=== PATIENT | male | born 1980 | race African-American/Black ===

== ENCOUNTER 2017-05-18 11:35 | Emergency (ER) | payer OTHER, SELFPAY ==
[2017-05-18 11:38] VITALS: BP 120/75; PULSE 72; RESP 22; TEMP 36.7; O2SAT 98; BMI 22.7
--- NOTE | 2017-05-18 12:00 | RAD_ITS ---
STUDY: X-RAY CHEST REASON FOR EXAM: Male, 37 years old. One-week history of cough and chest congestion. TECHNIQUE: PA and lateral views of the chest. COMPARISON: Comparison is made with prior study dated August 12, 2016. FINDINGS: Hyperinflation. The lungs are clear. There is no demonstrated pleural abnormality. Normal size heart. Normal mediastinum and kathryn. Normal visualized pulmonary arteries. Normal visualized aortic arch and descending thoracic aorta. Normal visualized thoracic spine. Normal visualized ribs, clavicles, and shoulders. There is no demonstrated abnormality of the visualized soft tissue structures of the upper abdomen. RAD/Chest PA and Lateral IMPRESSION: Hyperinflation. The lungs are clear. Electronically Signed: Michael Olvera MD at 12:41 EST Tel [phone], Service support ,
--- NOTE | 2017-05-18 12:48 | ED.DCSUM_ITS ---
- ER Visit Summary Date of Service: 05/18/17 Chief Complaint: [Fever and cough] History of Present Illness: The patient is a 37 M [presents to the emergency department with complaint of fever and cough for a week. Patient has had some mild nausea. Patient describes headache and body aches. Patient has had a runny nose. Patient has children at home that have been sick with the same and he thinks they were diagnosed with the flu.] She had fever up to 102 last night. Physical Examination: [HEENT-PERRLA, EOMI. Cranial nerves II through XII grossly intact. TMs clear. Mucous membranes moist. No adenopathy. She has some clear rhinorrhea noted. Cardiovascular-regular rate and rhythm without murmur or ectopy Lungs-clear to auscultation, chest wall stable without crepitus or subcu emphysema Abdomen-normoactive bowel sounds, soft, nontender, no rebound or rigidity, no peritoneal signs. Extremities-intact ?4, normal range of motion, normal pulses, atraumatic] Test Results: [Chest x-ray obtained was normal.] Emergency Department Course and Treatment: [None] Treatment Plan: [Patient will be written for [employer] and advised not to work until fever free for 24 hours.] Disposition: [Discharged to home in stable condition. Patient advised to return if increased difficulty breathing or condition should worsen in any way.] Impression: [Viral upper respiratory infection-suspect influenza] This note was generated with [employer] dictation software. It may contain incorrect words, spelling, and punctuation that were not noted in review of the chart prior to signing ED Disposition - Plan for ED Patient: Chief Complaint: General Illness Referrals: Care Physician,No Primary [Primary Care Provider] -
--- NOTE | 2017-05-18 12:48 | ED.DEP ---
ED Disposition - Plan for ED Patient: Chief Complaint: General Illness Instructions: ED Flu Prescriptions: Benzonatate [Tessalon Perle] 200 mg PO TID PRN PRN #20 cap PRN Reason: Cough Referrals: Care Physician,No Primary [Primary Care Provider] - Amira Tyler [[facility]] - 5-7 Days
[2017-05-18 13:02] VITALS: BP 127/79; PULSE 62; RESP 16; O2SAT 97
== END 2017-05-18 13:03 | disposition home or self-care (01) ==
PROVIDERS: Emergency Provider Emergency Medicine
DX: J06.9 Acute upper respiratory infection, unspecified (principal); Z72.0 Tobacco use
CPT/HCPCS: 71046; 99282

== ENCOUNTER 2017-11-05 20:16 | Emergency (ER) | payer SELFPAY ==
[2017-11-05 20:17] VITALS: BP 138/83; PULSE 100; RESP 16; TEMP 37.7; O2SAT 96; BMI 22.8
--- NOTE | 2017-11-05 20:56 | ED.VISSUMM ---
- ER Visit Summary Date of Service: 11/05/17 Chief Complaint: Right hand injury History of Present Illness: The patient is a 37 M with right hand pain and swelling after punching a door. Patient does not believe it is broken. He is right-hand dominant. Denies prior fracture to that hand. Physical Examination: Vital signs unremarkable. Patient's lying in bed no acute distress. Right upper extremity examination of the does reveal edema with minimal tenderness of the right fourth and fifth metacarpal phalangeal joints. There is full range of motion. Normal cap refill is noted. There is no tenderness at the wrist, elbow, or shoulder. Test Results: Right hand x-rays reveal no acute fracture. Emergency Department Course and Treatment: Levar wrap is applied to the hand. He declined anything for pain. Treatment Plan: [] Disposition: Discharge Impression: Right hand contusion This note was generated with [employer] dictation software. It may contain incorrect words, spelling, and punctuation that were not noted in review of the chart prior to signing ED Disposition - Plan for ED Patient: Disposition: Home or Assisted Living Chief Complaint: Upper Extremity Injury Instructions: ED Contusion Hand Referrals: Moses Hernández DO [STAFF PHYSICIAN] - As Needed
[2017-11-05 21:01] VITALS: BP 138/83; PULSE 100; RESP 15; O2SAT 96
== END 2017-11-05 21:02 | disposition home or self-care (01) ==
PROVIDERS: Emergency Provider Emergency Medicine
DX: S60.221A Contusion of right hand, initial encounter (principal); W22.09XA Striking against other stationary object, initial encounter; Y93.9 Activity, unspecified; Y92.89 Other specified places as the place of occurrence of the external cause; Y99.9 Unspecified external cause status
CPT/HCPCS: 73130; 99282

== ENCOUNTER 2018-02-25 18:30 | Emergency (ER) | payer SELFPAY ==
[2018-02-25 18:31] VITALS: BP 157/105; PULSE 88; RESP 14; TEMP 36.8; O2SAT 98; BMI 22.1
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
[2018-02-25 19:58] VITALS: BP 135/72; PULSE 65; RESP 17; O2SAT 99
[2018-02-25] MEDS: Naproxen 500 MG Tablet PO (20:03)
--- OUTSIDE RECORDS SUMMARY | 2018-04-21 00:48 | XMS RPT_ITS ---
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 37 From: Justine Worthy MD PCP: Care Physician, No Primary Status: [facility] ER ED Disposition - Plan for ED Patient: Disposition: Home or Assisted Living Chief Complaint: Upper Extremity Injury Instructions: ED Contusion Hand Referrals: Moses Hernández, [STAFF PHYSICIAN] - As Needed What to do if you have Problems For any increased pain, shortness of breath, bleeding, nausea or vomiting, chest pain, or any unexpected problems, contact your Primary Care Provider. Call [facility] ([phone]) or report to the closest Emergency Room. Call 911 if necessary. 11/05/172056 <Electronically signed by Justine Worthy MD> Date Justine Worthy MD Cosigner Signature (If Indicated): Date CC: No Primary Care Physician HAND MIN 3 VIEWS Observed: 11/05/2017 Status: F Source: [place] 8:39 PM [facility] [place] [facility] Imaging Services [address] [place] [id number] Hand Min 3 Views MR#: [id number] Acct: [id number] Name: NIKOLAS BARKER Rep #: [id number] : 1980 37 From: Phong Benavides MD PCP: Baljit Physician, No Primary Status: [facility] ER Study: Hand Min 3 Views Date of Exam: 11/05/17 Exam# [id number] Ordering Dr: Justine Worthy MD STUDY: X-RAY - RIGHT HAND REASON FOR EXAM: Male, 37 years old. Trauma TECHNIQUE: 3 view(s) of the hand. COMPARISON: October 23, 2016 FINDINGS: Mild soft tissue swelling. No radiopaque foreign body. Remote avulsion fracture at the fifth PIP joint seen on the lateral radiograph. There is deformity to the fifth metacarpal likely prior trauma. No dislocation identified. RAD/Hand Min 3 Views IMPRESSION: Soft tissue swelling. Remote avulsion fracture at the fifth PIP joint. No acute fracture identified. Electronically Signed: Phong Britoford, at 21:24 EDT Tel , Service support , CC: No Primary Care Physician; Justine Worthy MD Health Information Technologist: Signed ED NOTE Observed: 10/31/2017 Status: COMPLETED Source: [place] 1:14 AM [facility] OTHER [place] REPOSITORY HNO ID: [id number] Author: Vivian BarrettRn) COREY Hall Service: (none) Author Type: Registered Nurse Type: ED Notes Filed: 10/31/2017 1:14 AM Note Text: Pt discharge and follow up care reviewed with pt. Pt verb understanding. Pt ambulating with steady gait upon discharge from ED. ED PROV NOTE Observed: 10/31/2017 Status: COMPLETED Source: [place] 1:01 AM [facility] OTHER [place] REPOSITORY HNO ID: [id number] Author: PARAG Luo Pa-C Service: Emergency Medicine Author Type: Physician Manager Of Change Type: ED Provider Notes Filed: 10/31/2017 1:03 AM Note Text: ED Provider Note Patient Name: Nikolas Barker SERVICE DATE: 10/30/17 History Patient presents with: Pain (Shoulder Pain) This is a pleasant 37-year-old male presents to the emergency department with right shoulder pain. Patient states the right shoulder pain has been ongoing for 3 weeks. Patient states that the pain has become worse today. Patient states that he has a remote injury of his right shoulder when he over used to his shoulder throwing a baseball. Patient states that he is played basketball 3 weeks ago which showed (to her again. Patient states that his shoulder hurts on the anterior and lateral aspect of the muscle. Patient denies trauma. Patient denies nausea vomiting fever chills. Patient denies decreased range of motion paresthesia. Patient denies crepitus. Patient denies subluxation. Patient denies OTC medication for prior evaluations. PAST MEDICAL HISTORY Diagnosis Date - Psychiatric disorder anxiety PAST SURGICAL HISTORY Procedure Laterality Date - HERNIA REPAIR HX right inguinal No family history on file. Social History Social History Main Topics - Smoking status: Current Every Day Smoker Packs/day: 0.50 Types: Cigarettes - Smokeless tobacco: Never Used - Alcohol use 1.0 oz/week 2 Cans of beer per week Comment: social - Drug use: No Comment: quit last week - Sexual activity: Yes Partners: Female ALLERGIES No Known Allergies Review of Systems Constitutional: Negative for appetite change, chills, diaphoresis, fatigue and fever. HENT: Negative for congestion, dental problem, rhinorrhea and sore throat. Eyes: Negative for pain and visual disturbance. Respiratory: Negative for cough, chest tightness, shortness of breath and wheezing. Cardiovascular: Negative for chest pain and leg swelling. Gastrointestinal: Negative for abdominal distention, abdominal pain, diarrhea, nausea and vomiting. Endocrine: Negative for polydipsia and polyuria. Genitourinary: Negative for difficulty urinating, dysuria, flank pain and hematuria. Musculoskeletal: Positive for arthralgias. Negative for myalgias and neck stiffness. Neurological: Negative for dizziness, seizures, light-headedness, numbness and headaches. Hematological: Negative for adenopathy. Does not bruise/bleed easily. Psychiatric/Behavioral: Negative for agitation. All other systems reviewed and are negative. Physical Exam BP 148/75 Pulse 58 Temp (Src) 98.2 (Oral) Resp 18 Ht 5' 8 (1.73m) Wt 150 lb (68.0kg) SpO2 98% BMI 22.81 kg/(m2). Physical Exam Constitutional: He is oriented to person, place, and time. He appears well-developed. No distress. HENT: Head: Normocephalic and atraumatic. Mouth/Throat: No oropharyngeal exudate. Eyes: Conjunctivae and EOM are normal. Pupils are equal, round, and reactive to light. No scleral icterus. Neck: Normal range of motion. No JVD present. No thyromegaly present. Cardiovascular: Normal rate, regular rhythm, normal heart sounds and intact distal pulses. Pulmonary/Chest: Effort normal and breath sounds normal. He has no wheezes. He has no rales. Abdominal: Soft. He exhibits no distension. There is no tenderness. Musculoskeletal: Normal range of motion. He exhibits no edema or tenderness. Neurological: He is alert and oriented to person, place, and time. Skin: Skin is warm. Capillary refill takes less than 2 seconds. He is not diaphoretic. No erythema. Psychiatric: He has a normal mood and affect. His behavior is normal. Judgment and thought content normal. Nursing note and vitals reviewed. Diagnostic Testing ED Labs Ordered and Reviewed - No data to display Procedures ED Course / Clinical Impression Clinical Impressions as of Oct 31 100 Strain of right shoulder, initial encounter MDM / Disposition / Plan Vital signs were reviewed. Triage records were reviewed. Medical records were reviewed. Nursing notes were reviewed and incorporated. Medical Decision Makiny M presents to ED c/o Shoulder strain. Pt is afebrile and HD stable. Pt is non-toxic appearing, AANDO in no distress. Patient is generously intact. Patient demonstrates full range of motion. Patient's pain was improved with mobility and stretching exercises. Pain is reproducible with muscle deep palpation. Patient educated on muscular strain. Patient educated on orthopedic follow-up. Patient educated on x-ray images. Patient provided Norflex. Pt educated on pharm non-pharm tx. Pt educated on worsening and progressing symptoms and encouraged to return to ED if they should occur. Patient expressed understanding and is amenable to medical course. All questions were answered and there is no barriers in communication. The patient was DISCHARGED: Counseled patient regarding suspected diagnosis AND need for follow-up. Discharged home with verbal and written instructions. They were instructed to return as needed for persistent or worsening symptoms or any new concerns. Condition at time of disposition: stable New Prescriptions CYCLOBENZAPRINE (FLEXERIL) 10 MG TABLET Take 1 tablet by mouth every 8 hours as needed for Muscle Spasm (or Pain). IBUPROFEN (MOTRIN) 600 MG TABLET Take 1 tablet by mouth every 6 hours as needed for Pain. SIGNATURE: ORLANDO Luo) PARAG Singer 10/31/17 0103 XR SHLDR >/=3V Observed: 10/31/2017 Status: F Source: [place] AP/TEMO AP/OT RT 12:36 AM CLINIC OTHER CAMPUS REPOSITORY * * *Final Report* * * DATE OF EXAM: Oct 31 2017 12:36AM EUX 5253 - XR SHLDR >/=3V AP/TEMO AP/OTHR RT / PROCEDURE REASON: Arthritis, shoulder * * * * Physician Interpretation * * * * RESULT: RIGHT SHOULDER X-RAY SERIES HISTORY: Arthritis, shoulder TECHNIQUE: AP, Grashey, lateral scapular Y-view COMPARISON: None available. RESULT: No fracture, dislocation or destructive changes. Joint spaces and articular surfaces are preserved. IMPRESSION: Normal right shoulder. Transcribed Using Voice Recognition Transcribe Date/Time: Oct 31 2017 12:50A Dictated by: KEIRY KILGORE MD This examination was interpreted and the report reviewed and electronically signed by: KEIRY KILGORE MD on Oct 31 2017 12:51AM EST [id number] ED NOTE Observed: 10/31/2017 Status: COMPLETED Source: [place] 12:35 AM [facility] HNO ID: [id number] Author: Vivian Hall RN Service: (none) Author Type: Registered Nurse Type: ED Notes Filed: 10/31/2017 12:35 AM Note Text: Patient returned to the Emergency Department. ED NOTE Observed: 10/31/2017 Status: COMPLETED Source: [place] 12:15 AM [facility] HNO ID: [id number] Author: Vivian Hall RN Service: (none) Author Type: Registered Nurse Type: ED Notes Filed: 10/31/2017 1:15 AM Note Text: Patient transported to x-ray with Nurse. ED NOTE Observed: 10/30/2017 Status: COMPLETED Source: [place] 11:36 PM [facility] HNO ID: [id number] Author: Vivian Hall RN Service: (none) Author Type: Registered Nurse Type: ED Notes Filed: 10/31/2017 12:16 AM Note Text: ED NOTE Observed: 10/30/2017 Status: COMPLETED Source: [place] 9:47 PM [facility] HNO ID: [id number] Author: Daniela Payne RN Service: (none) Author Type: Registered Nurse Type: ED Notes Filed: 10/30/2017 9:47 PM Note Text: Pt in with R shoulder pain x three weeks with no known injury. Plan of care -Monitor Patient's Vital Signs -Monitor pain -Maintain patient safety and privacy -Provide comfort measures as needed -Call light in place -Siderails up, bed in locked and low position. DISCHARGE INSTRUCTION Observed: 05/18/2017 Status: F Source: [place] 12:51 PM [facility] Medical Records Department [address] [place] [address] Discharge Instruction 05/18/17 1248 MR#: [id number] Acct: [id number] Name: NIKOLAS BARKER Rep #: [id number] : 1980 37 From: Fili Alston DO PCP: Care Physician, No Primary Status: REG ER ED Disposition - Plan for ED Patient: Chief Complaint: General Illness Instructions: ED Flu Prescriptions: Benzonatate [Tessalon Perle] 200 mg PO TID PRN PRN #20 cap PRN Reason: Cough Referrals: Care Physician,No Primary [Primary Care Provider] - Amira Tyler [[facility]] - 5-7 Days What to do if you have Problems For any increased pain, shortness of breath, bleeding, nausea or vomiting, chest pain, or any unexpected problems, contact your Primary Care Provider. Call [facility] ([phone]) or report to the closest Emergency Room. Call 911 if necessary. 05/18/17 1251 <Electronically signed by Fili Alston DO> Date Fili Alston DO Cosigner Signature (If Indicated): Date CC: No Primary Care Physician EMERGENCY DEPARTMENT Observed: 05/18/2017 Status: F Source: [place] SUMMARY 12:48 PM [facility] [facility] Medical Records Department [address] [place] [address] Emergency Department Summary 05/18/17 1247 MR#: [id number] Acct: [id number] Name: NIKOLAS BARKER Rep #: [id number] : 1980 37 From: Fili Alston DO PCP: Care Physician, No Primary Status: REG ER - ER Visit Summary Date of Service: 05/18/17 Chief Complaint: [Fever and cough] History of Present Illness: The patient is a 37 M [presents to the emergency department with complaint of fever and cough for a week. Patient has had some mild nausea. Patient describes headache and body aches. Patient has had a runny nose. Patient has children at home that have been sick with the same and he thinks they were diagnosed with the flu.] She had fever up to 102 last night. Physical Examination: [HEENT-PERRLA, EOMI. Cranial nerves II through XII grossly intact. TMs clear. Mucous membranes moist. No adenopathy. She has some clear rhinorrhea noted. Cardiovascular-regular rate and rhythm without murmur or ectopy Lungs-clear to auscultation, chest wall stable without crepitus or subcu emphysema Abdomen-normoactive bowel sounds, soft, nontender, no rebound or rigidity, no peritoneal signs. Extremities-intact 4, normal range of motion, normal pulses, atraumatic] Test Results: [Chest x-ray obtained was normal.] Emergency Department Course and Treatment: [None] Treatment Plan: [Patient will be written for [employer] and advised not to work until fever free for 24 hours.] Disposition: [Discharged to home in stable condition. Patient advised to return if increased difficulty breathing or condition should worsen in any way.] Impression: [Viral upper respiratory infection-suspect influenza] This note was generated with KILTR dictation software. It may contain incorrect words, spelling, and punctuation that were not noted in review of the chart prior to signing ED Disposition - Plan for ED Patient: Chief Complaint: General Illness Referrals: Care Physician,No Primary [Primary Care Provider] - What to do if you have Problems For any increased pain, shortness of breath, bleeding, nausea or vomiting, chest pain, or any unexpected problems, contact your Primary Care Provider. Call [facility] ([phone]) or report to the closest Emergency Room. Call 911 if necessary. 05/18/17 8731 <Electronically signed by Fili Alston DO> Date Fili Alston DO Cosigner Signature (If Indicated): Date CC: No Primary Care Physician CHEST PA AND LATERAL Observed: 05/18/2017 Status: F Source: [place] 12:00 PM [facility] Imaging Services [address] [place] [address] Chest PA and Lateral MR#: [id number] Acct: [id number] Name: NIKOLAS BARKER Rep #: [id number] : 1980 M 37 From: Michael Olvera MD PCP: Care Physician, No Primary Status: REG ER Study: Chest PA and Lateral Date of Exam: 05/18/17 Exam# [id number] Ordering Dr: Fili Alston DO STUDY: X-RAY CHEST REASON FOR EXAM: Male, 37 years old. One-week history of cough and chest congestion. TECHNIQUE: PA and lateral views of the chest. COMPARISON: Comparison is made with prior study dated August 12, 2016. FINDINGS: Hyperinflation. The lungs are clear. There is no demonstrated pleural abnormality. Normal size heart. Normal mediastinum and kathryn. Normal visualized pulmonary arteries. Normal visualized aortic arch and descending thoracic aorta. Normal visualized thoracic spine. Normal visualized ribs, clavicles, and shoulders. There is no demonstrated abnormality of the visualized soft tissue structures of the upper abdomen. RAD/Chest PA and Lateral IMPRESSION: Hyperinflation. The lungs are clear. Electronically Signed: Michael Olvera MD at 12:41 EST Tel [phone], Service support , CC: No Primary Care Physician; Fili Alston DO Health Information Technologist: Signed ALLERGIES ALLERGIES DATE TYPE / CODE NAME / CODE REACTION SEVERITY SOURCE 02/25/2018 Drug No Known Unknown [facility] Allergy/416 Allergies/C20999 Hospital 192961(SNOM 0388(RXNORM) Repository ED CT) Drug NO KNOWN [facility] Class/14168 ALLERGIES Other [place] 1003(SNOMED Repository CT) ENCOUNTERS ENCOUNTERS ADMIT/DISCHARGE ACCOUNT NUMBER ADMITTING ENCOUNTER LOCATION SOURCE CLASS 02/25/2018/02/26/20 [id number] Emergency [address] ing:ED Repository 02/16/2018/02/17/20 [id number] Emergency [address] Repository 11/05/2017/11/06/19 [id number] Emergency [address] ing:ED Repository 10/30/2017/11/01/19 [id number] Emergency [address] Other [place] Repository 05/18/2017/05/18/19 [id number] Emergency [address] ing:ED Repository PAYERS PAYERS ENCOUNTER GUARANTOR PAYER SUBSCRIBER SOURCE 02/25/2018 NIKOLAS BARKER978 [facility] [address]Jjp: (216) Number: Effective Repository [phone] () Date:2018-02-25 11/05/2017 NIKOLAS BARKER978 Primary NOT GIVENUNK [place] Insurance:SELF PAY [facility] [id number]: (330) Number: Effective Repository [phone] () Date:2017-11-05 05/18/2017 NIKOLAS BARKER978 Primary NIKOLAS BARKERDOB: [place] Insurance[id number] [address]Ugr: (330) Number: Repository [phone] () [id number] Date:[id number] [address]GT: 05/18/2017 Secondary NOT GIVENUNK [place] Insurance[facility]LF [facility]Y [facility]: Effective Repository Date:2017-05-18
== END 2018-02-25 20:04 | disposition home or self-care (01) ==
PROVIDERS: Emergency Provider Emergency Medicine
DX: S20.211A Contusion of right front wall of thorax, initial encounter (principal); W51.XXXA Accidental striking against or bumped into by another person, initial encounter; Y93.9 Activity, unspecified; Y92.89 Other specified places as the place of occurrence of the external cause; Y99.8 Other external cause status; Z72.0 Tobacco use
CPT/HCPCS: 71101; 99282

== ENCOUNTER 2020-09-17 18:52 | Emergency (ER) | payer BC, SELFPAY ==
[2020-09-17 18:52] VITALS: BP 150/82; PULSE 88; RESP 15; TEMP 35.8; O2SAT 98; BMI 20.7
--- NOTE | 2020-09-17 19:20 | RAD_ITS ---
STUDY: X-RAY - RIGHT HAND REASON FOR EXAM: Male, 40 years old. Injury/Pain TECHNIQUE: 3 view(s) of the hand. COMPARISON: 07/06/2017 FINDINGS: Normal radiocarpal articulation. Normal distal radioulnar joint. Normal visualized carpal bones. Normal carpal articulations Normal carpometacarpal articulation of the thumb. Normal second through fifth carpometacarpal joints. Normal metacarpi. Normal metacarpophalangeal joint of the thumb. Normal interphalangeal joint of the thumb. Normal proximal and distal phalanges of the thumb. Normal metacarpophalangeal joints of the second through fifth fingers. Normal proximal and distal interphalangeal joints of the second through fifth fingers. Normal phalanges of the second through fifth fingers. The soft tissue structures are unremarkable. RAD/Hand Min 3 Views IMPRESSION: No acute osseous injury. Electronically Signed: Liliane Cabrera MD at 19:59 EDT Tel , Service support ,
--- NOTE | 2020-09-17 21:10 | EX.ED.UPPERE ---
HPI History of Present Illness HPI Narrative: Patient presents with right hand injury that occurred several days ago. Patient was seen at an outlying hospital and had sutures placed in his fingers. Patient states they did x-rays but that only concentrated on his fingers. Patient complains of pain over his fourth and fifth metacarpals. Patient admits to increased swelling in that area. Patient denies any paresthesias or weakness. Patient denies any other injuries. Chief Complaint: Upper Extremity Injury Informant: patient Onset/Context/Timing Onset: Days Context: Sudden Onset Timing: Continuous Quality of Pain: Throbbing Location: Right hand Worsened by: Palpation Relieved by: Ibuprofen Associated Symptoms Associated Symptoms: Negative for Parasthesia and Weakness PFSH PFSH no medical history Home Medications NK 09/17/20 [History Last Taken Unknown] Allergy/AdvReac Type Severity Reaction Status Date / Time No Known Allergies Allergy Verified 09/17/20 18:54 Surgical History H/O hernia repair Social History Smoking Status: Current every day smoker tobacco type: cigarettes ROS ROS ED Constitutional Constitutional ED: Denies chills or fever(s) Eyes Eyes: Denies blurry vision or change in vision ENT ENT ED: Denies rhinorrhea or sore throat Cardiovascular Cardiovascular: Denies chest pain or palpitations Respiratory/Chest Respiratory/Chest: Denies cough or dyspnea Gastrointestinal Gastrointestinal: Denies nausea or vomiting Genitourinary Genitourinary ED: Denies dysuria or hematuria Musculoskeletal Musculoskeletal: Denies back pain or neck pain Integumentary Denies abscess or rash Neurologic Neurologic: Denies headache(s) or weakness Allergic/Immunologic Allergic/Immunologic ED: Denies mouth swelling or urticaria EXAM Physical Exam Const Vital Signs: 09/17/20 18:52 Temperature 96.5 F L Temperature Source Temporal Pulse Rate 88 Respiratory Rate 15 Blood Pressure 150/82 H Blood Pressure Mean 104 Pulse Ox 98 Oxygen Delivery Method Room Air Positive well nourished and well developed General Appearance ED: well developed HEENT Reports moist mucous membranes Neck full ROM Extremity Extremity Narrative: There is tenderness and edema over the right fourth and fifth metacarpals. There is no obvious deformity. There are healing lacerations noted over the dorsal aspect of the right hand and middle finger. There is no erythema. There is no discharge or drainage. Range of motion was limited in all motions of the right hand secondary to pain. Sensation was intact to light touch in all digits. Capillary refill was less than 2 seconds in all digits. Neuro oriented x3, CN's II-XII intact bilaterally, moves all extremities, no focal motor deficits and no sensory deficits noted Sensorium / Orientation: alert Psych mental status grossly normal MDM MDM MDM Narrative Medical decision making narrative: X-rays of the right hand were obtained. There are 3 views. On my interpretation, there is no acute fracture. There is no dislocation. There is some mild soft tissue swelling. Radiologist also interpreted the x-rays and agrees. Patient was advised of his findings. Patient was given a Velcro wrist splint. Patient was instructed to continue ibuprofen as needed for pain. Patient was instructed use ice to the area. Patient was instructed to follow-up with his primary care physician in 5 to 7 days. Patient understood and was agreeable with the plan. All questions were answered. Radiography Diagnostic Testing: Radiology Impression Hand X-Ray 09/17/20 19:20 IMPRESSION: No acute osseous injury. Electronically Signed: Liliane Cabrera MD at 19:59 EDT Tel , Service support , Discharge Plan Triage Chief Complaint: Upper Extremity Injury ED Provider: Hank Paiz Dx/Rx/DC Orders Clinical Impression: Contusion of hand, right Instructions: ED Hand Contusion Prescriptions: No Action NK RF: 0 Primary Care Provider: Care Physician,No Primary Referrals: Teena Joyner [NON-STAFF] - 5-7 Days Care Physician,No Primary [Primary Care Provider] - Disposition Disposition: Home, Self Care
== END 2020-09-17 21:37 | disposition home or self-care (01) ==
PROVIDERS: Emergency Provider Emergency Medicine
DX: S60.221D Contusion of right hand, subsequent encounter (principal); X58.XXXD Exposure to other specified factors, subsequent encounter; F17.210 Nicotine dependence, cigarettes, uncomplicated
CPT/HCPCS: 73130; 99283

== ENCOUNTER 2021-01-07 19:34 | Emergency (ER) | payer SELFPAY ==
[2021-01-07 19:35] VITALS: BP 143/91; PULSE 72; RESP 18; TEMP 36.8; O2SAT 99; BMI 23.5
[2021-01-07] MEDS: Ondansetron 4 MG/2 ML Vial IV (20:45)
[2021-01-07 20:55] LABS: Absolute Lymphocyte Count 3.13 X10^3/uL (0.83-4.51); Absolute Neutrophil Count 4.8 X10^3/uL (2.0-7.7); Basophil# 0.02 X10^3/uL; Basophil% 0.2 % (0-1); Eosinophil# 0.07 X10^3/uL; Eosinophils% 0.8 % (0-5); Hematocrit 43.7 % (40-54); Hemoglobin 14.6 g/dL (13.0-16.5); Lymphocyte # 3.13 X10^3/ul (0.83-4.51); Lymphocyte % 35.7 % (19-41); Mean Corp Hgb Conc 33.4 g/dL (32-36); Mean Corpuscular Hgb 28.6 pg (27.0-32.0); Mean Corpuscular Volume 85.5 fL (80-94); Mean Platelet Vol. 9.1 fl (6.2-12.0); Monocyte# 0.69 X10^3/uL; Monocyte% 7.9 % (0-10); NRBC Flagged by Analyzer 0 % (0-5); Neutrophil # 4.83 X10^3/uL (2.7-7.7); Neutrophil % 55.2 % (47-70); Platelet Count 309 K/mm3 (150-450); RBC Distribution Width CV 13.8 % (11.6-14.6); RBC Distribution Width SD 43.1 fl (35.1-43.9); Red Blood Count 5.11 M/mm3 (4.6-6.2); White Blood Count 8.8 K/mm3 (4.4-11.0)
[2021-01-07 21:25] LABS: AST(SGOT) 58 U/L (15-37); Alanine Aminotransfer ALT/SGPT 36 U/L (16-61); Albumin, Serum 3.6 g/dL (3.2-5.0); Alkaline Phosphatase 63 U/L (45-117); Anion Gap 6 (5-15); BUN 17 mg/dL (7-18); BUN/Creat Ratio 19.1 RATIO (10-20); Bilirubin, Direct < 0.05 mg/dL (0.00-0.30); Chloride 104 mmol/L (98-107); Creatinine, Serum 0.89 mg/dL (0.70-1.30); EST Glomerular Filtration Rate 100 mL/min (>60); Est Glom Filt Rate - Afr Amer 121 mL/min (>60); Estimated Creatinine Clearance 105.67 ml/min; Globulin 4.3 g/dL (2.2-4.2); Glucose 85 mg/dL (74-106); Lipase 43 U/L (73-393); Potassium 5.4 mmol/L (3.5-5.1); Protein, Total 7.9 g/dL (6.4-8.2); Sodium Level 136 mmol/L (136-145)
[2021-01-07 23:05] VITALS: RESP 16
--- NOTE | 2021-01-07 23:16 | EDS_ITS ---
HPI History of Present Illness Chief Complaint: Abd Pain Informant: patient Onset/Context/Timing Onset: Today Current Severity: Mild Maximum Severity: Mild Narrative Narrative: Patient presents secondary to abdominal pain and vomiting. He states he went to work today and felt slightly nauseated. He thought he might of eaten something that did not settle well with him. While at work pain worsened and he vomited twice. He went to the company nurse who evaluated him and recommended he come in for evaluation. Patient denies diarrhea. No fever or chills. No co ugh or congestion. PFSH PFSH Medical History no medical history no medical history Home Medications ondansetron 4 mg PO Q8H PRN #10 tab 01/07/21 [Rx Last Taken Unknown] Allergy/AdvReac Type Severity Reaction Status Date / Time No Known Allergies Allergy Verified 09/17/20 18:54 Surgical History H/O hernia repair Social History Smoking Status: Current every day smoker tobacco type: cigarettes ROS ROS ED Constitutional Constitutional ED: Denies chills or fever(s) Eyes Eyes: Denies change in vision ENT ENT ED: Denies sore throat Cardiovascular Cardiovascular: Denies chest pain Respiratory/Chest Respiratory/Chest: Denies cough or dyspnea Gastrointestinal Gastrointestinal: Reports abdominal pain, nausea and vomiting; Denies diarrhea Genitourinary Genitourinary ED: Denies dysuria Musculoskeletal Musculoskeletal: Denies back pain Integumentary Denies rash Neurologic Neurologic: Denies headache(s) or weakness Allergic/Immunologic Allergic/Immunologic ED: Denies urticaria EXAM Physical Exam Const Vital Signs: 01/07/21 19:35 01/07/21 23:05 01/07/21 23:24 Temperature 98.3 F Temperature Source Temporal Pulse Rate 72 Respiratory Rate 18 16 16 Blood Pressure 143/91 H Blood Pressure Mean 108 Pulse Ox 99 Oxygen Delivery Method Room Air Positive well nourished and well developed General Appearance ED: well developed HEENT Reports normocephalic and head/scalp atraumatic Eyes PERRL and EOMs intact bilaterally Neck supple Chest Wall inspection of chest normal and palpation of chest normal Resp normal respiratory effort and clear to auscultation bilaterally Cardio regular rate and regular rhythm GI normal to inspection, nondistended, normoactive bowel sounds and non-tender Palpation: soft Extremity normal to inspection Neuro oriented x3 and no sensory deficits noted Sensorium / Orientation: alert Motor Exam: strength 5/5 throughout Psych mental status grossly normal Skin no rashes or lesions noted MDM MDM MDM Narrative Medical decision making narrative: Patient was given Zofran. Lab work obtained. Covid swab ordered. Lab Data Attestation: I reviewed the patient's lab results. Labs: Laboratory Results - last 24 hr 01/07/21 01/07/21 20:43 20:43 WBC 8.8 RBC 5.11 Hgb 14.6 Hct 43.7 MCV 85.5 MCH 28.6 MCHC 33.4 RDW Std Deviation 43.1 RDW Coeff of Estephania 13.8 Plt Count 309 MPV 9.1 Immature Gran % (Auto) 0.200 Neut % (Auto) 55.2 Lymph % (Auto) 35.7 [place] % (Auto) 7.9 Eos % (Auto) 0.8 Baso % (Auto) 0.2 Absolute Neuts (auto) 4.8 Absolute Lymphs (auto) 3.13 Nucleated RBC % 0 Sodium 136 Potassium 5.4 H Chloride 104 Carbon Dioxide 26.0 Anion Gap 6 BUN 17 Creatinine 0.89 Estim Creat Clear Calc 105.67 Est GFR (MDRD) Af Amer 121 Est GFR (MDRD) Non-Af 100 BUN/Creatinine Ratio 19.1 Glucose 85 Calcium 9.0 Total Bilirubin 0.50 Direct Bilirubin < 0.05 AST 58 H ALT 36 Alkaline Phosphatase 63 Total Protein 7.9 Albumin 3.6 Globulin 4.3 H Lipase 43 L Rapid Covid test negative. Treatment and Re-Evaluation Comments:: Repeat evaluation patient in no acute distress. He reports some improvement in his nausea. Lab work reviewed and unremarkable. Patient be discharged with a prescription for Zofran. Return instructions provided. He is given a note for off work today and may return tomorrow. Discharge Plan Triage Chief Complaint: Abd Pain ED Provider: Justine Worthy Dx/Rx/DC Orders Clinical Impression: Vomiting Instructions: ED Vomiting (Adult) Prescriptions: New ondansetron 4 mg tablet,disintegrating 4 mg PO Q8H PRN (Reason: nausea and vomiting) Qty: 10 RF: 0 Stand Alone Forms: ED Work / School Excuse Primary Care Provider: Care Physician,No Primary Referrals: Amira Tyler MD [STAFF PHYSICIAN] - As Needed Care Physician,No Primary [Primary Care Provider] - Disposition Disposition: Home, Self Care Discharge Date/Time: 01/07/21 23:25
[2021-01-07 23:24] VITALS: RESP 16
== END 2021-01-07 23:25 | disposition home or self-care (01) ==
PROVIDERS: Emergency Provider Emergency Medicine
DX: R11.2 Nausea with vomiting, unspecified (principal); R10.9 Unspecified abdominal pain; F17.210 Nicotine dependence, cigarettes, uncomplicated
CPT/HCPCS: 80048; 80076; 83690; 85025; 87426; 96374; 99283; A4216; J2405

== ENCOUNTER 2021-02-03 12:49 | Emergency (ER) | payer SELFPAY ==
[2021-02-03 12:49] VITALS: BP 160/95; PULSE 88; RESP 16; TEMP 36.1; O2SAT 99; BMI 23.6
[2021-02-03 13:02] VITALS: BP 142/88; PULSE 88; RESP 15; O2SAT 99
--- NOTE | 2021-02-03 13:16 | EX.ED.DYSGE1 ---
HPI History of Present Illness Chief Complaint: Abd Pain Detail of Chief Complaint: Vomiting and diarrhea x3 days Informant: patient Narrative Narrative: Patient presents to the emergency department complaint of not feeling well times last 3 days. Patient states that he woke up with a fever as well as vomiting and diarrhea. Patient did not go to work. Patient states the diarrhea is better but continues to have nausea and vomiting. He has decreased appetite. He vomited about 3 times yesterday and once today. He denies any abdominal pain currently. He denies cough. He denies body aches. He denies Covid exposures. Patient does not have any medical history. He denies sick contacts. PFSH PFSH Medical History no medical history Home Medications ondansetron 4 mg PO Q8H PRN PRN #10 tab 02/03/21 [Rx Last Taken Unknown] ondansetron [Zofran ODT] 4 mg PO Q8H PRN PRN 02/03/21 [History Last Taken Unknown] Allergy/AdvReac Type Severity Reaction Status Date / Time No Known Allergies Allergy Verified 02/03/21 12:50 Surgical History H/O hernia repair Social History Smoking Status: Current every day smoker tobacco type: cigarettes ROS ROS ED Constitutional Constitutional ED: Reports systems reviewed and no addt'l complaints, except as documented; Denies body ache(s), change in weight or chills Eyes Eyes: Denies acute decrease in peripheral vision, change in vision, double vision or loss of vision ENT ENT ED: Reports none; Denies ear pain, lip swelling, loss taste/smell, neck pain, otalgia or sore throat Cardiovascular Cardiovascular: Reports none; Denies abdominal pain, chest pain with activity, leg edema, lightheadedness, palpitations, rapid heart rate or syncope Respiratory/Chest Respiratory/Chest: Reports none; Denies change in mental status, dry cough, dyspnea, hemoptysis, shortness of breath at rest or shortness of breath with exertion Gastrointestinal Gastrointestinal: Reports none, diarrhea, nausea and vomiting; Denies abdominal pain, change in stool character, hematemesis, hematochezia, melena or rectal bleeding Genitourinary Genitourinary ED: Reports none; Denies abdominal discomfort, anuria, dysuria, genital pain or polyuria Musculoskeletal Musculoskeletal: Reports none; Denies arthralgias, back pain, difficulty walking, extremity pain, muscle weakness or myalgias Integumentary Reports none; Denies abscess or rash Neurologic Neurologic: Reports none and headache(s); Denies abnormal gait, confusion, focal weakness, frequent falls, loss of vision, numbness, paresthesias, radicular pain, vertigo or weakness Psychiatric Psychiatric: Reports systems reviewed and no addt'l complaints, except as documented and none; Denies behavioral changes, confusion, difficulty concentrating, hallucinations, suicidal ideation, tactile hallucinations or visual hallucinations Endocrine Endocrinology: Denies none, cold intolerance, excessive sweating, fatigue or heat intolerance Hematologic/Lymphatic Hematologic/Lymphatic: Reports none; Denies anemia, easy bleeding or easy bruising Allergic/Immunologic Allergic/Immunologic ED: Denies as per HPI, none, lip swelling, mouth swelling, throat swelling, tongue swelling or hives EXAM Physical Exam Const Vital Signs: 02/03/21 12:49 02/03/21 13:02 Temperature 97 F L Temperature Source Temporal Pulse Rate 88 88 Respiratory Rate 16 15 Blood Pressure 160/95 H 142/88 H Blood Pressure Mean 116 106 Pulse Ox 99 99 Oxygen Delivery Method Room Air Room Air Positive well nourished and well developed General Appearance ED: well developed and NAD HEENT Reports TM's clear and moist mucous membranes normocephalic and atraumatic; Negative for trauma or tenderness Tympanic Membrane ED: Yes TM's clear Eyes PERRL and EOMs intact bilaterally General Eye ED: Negative for pale conjunctiva or scleral icterus Neck no lymphadenopathy, supple and no JVD General: Negative for tenderness Chest Wall inspection of chest normal and palpation of chest normal Chest: Negative for tenderness Resp normal respiratory effort and clear to auscultation bilaterally Effort and Inspection: Negative for respiratory distress or pain with movement Auscultation: Negative for rhonchi, wheezes or diminished lung sounds Cardio regular rate, regular rhythm, S1 normal heart sound, S2 normal heart sound and no murmurs Peripheral Pulses: pulses 2+ throughout GI normal to inspection, nondistended, normoactive bowel sounds, soft to palpation, non-tender, non-distended and no masses Back/Spine no CVA tenderness and no thoracic nor lumbar tenderness Extremity normal to inspection General Extremety ED: Negative for edema General Extremity: Negative for edema Neuro oriented x3, CN's II-XII intact bilaterally, no sensory deficits noted and gait normal Sensorium / Orientation: awake, alert, oriented to person, oriented to place and oriented to time Motor Exam: strength 5/5 throughout and strength abnormal Psych mental status grossly normal Skin no rashes or lesions noted and no wounds MDM MDM MDM Narrative Medical decision making narrative: IV line established on arrival. Patient was given a liter normal same fluid bolus. Lab work essentially unremarkable other than a slight elevation in his AST and ALT of which she did have a slight elevation of approximately 3 weeks ago when seen in the emergency department for vomiting. Patient has no tenderness over the right upper quadrant I do not believe this is indicative of gallbladder disease. I suspect this may be a transient elevation of his liver enzymes related to a viral etiology. Patient advised to push fluids and he will be given a prescription for Zofran. Advised to return if persistent vomiting, diarrhea, dehydration, severe abdominal pain, or condition should worsen anyway. Lab Data Attestation: I reviewed the patient's lab results. Labs: Laboratory Results - last 24 hr 02/03/21 02/03/21 14:23 14:23 WBC 7.8 RBC 5.41 Hgb 15.6 Hct 46.3 MCV 85.6 MCH 28.8 MCHC 33.7 RDW Std Deviation 43.8 RDW Coeff of Estephania 13.9 Plt Count 313 MPV 9.1 Immature Gran % (Auto) 0.300 Neut % (Auto) 60.0 Lymph % (Auto) 29.7 [place] % (Auto) 8.0 Eos % (Auto) 1.4 Baso % (Auto) 0.6 Absolute Neuts (auto) 4.7 Absolute Lymphs (auto) 2.33 Nucleated RBC % 0 Sodium 138 Potassium 4.0 Chloride 107 Carbon Dioxide 26.0 Anion Gap 5 BUN 10 Creatinine 0.76 Estim Creat Clear Calc 127.91 Est GFR (MDRD) Af Amer 145 Est GFR (MDRD) Non-Af 120 BUN/Creatinine Ratio 13.2 Glucose 99 Calcium 9.0 Total Bilirubin 0.80 AST 65 H ALT 75 H Alkaline Phosphatase 64 Total Protein 7.5 Albumin 3.7 Globulin 3.8 Albumin/Globulin Ratio 1.0 Lipase 90 Discharge Plan Triage Chief Complaint: Abd Pain ED Provider: Fili Alston Dx/Rx/DC Orders Clinical Impression: Viral gastroenteritis Instructions: ED Gastroenteritis, Viral (Adult) Prescriptions: New ondansetron [ondansetron] 4 MG tablet 4 mg PO Q8H PRN PRN (Reason: Nausea) Qty: 10 RF: 0 No Action ondansetron [Zofran ODT] 4 mg Tablet,Disintegrating 4 mg PO Q8H PRN PRN (Reason: Nausea) RF: 0 Primary Care Provider: Care Physician,No Primary Referrals: Rosa Mccormack MD [STAFF PHYSICIAN] - 3-5 Days Care Physician,No Primary [Primary Care Provider] - Disposition Disposition: Home, Self Care
[2021-02-03] MEDS: Ondansetron 4 MG/2 ML Vial IV (14:21)
[2021-02-03 14:30] LABS: Absolute Lymphocyte Count 2.33 X10^3/uL (0.83-4.51); Absolute Neutrophil Count 4.7 X10^3/uL (2.0-7.7); Basophil# 0.05 X10^3/uL; Basophil% 0.6 % (0-1); Eosinophil# 0.11 X10^3/uL; Eosinophils% 1.4 % (0-5); Hematocrit 46.3 % (40-54); Hemoglobin 15.6 g/dL (13.0-16.5); Lymphocyte # 2.33 X10^3/ul (0.83-4.51); Lymphocyte % 29.7 % (19-41); Mean Corp Hgb Conc 33.7 g/dL (32-36); Mean Corpuscular Hgb 28.8 pg (27.0-32.0); Mean Corpuscular Volume 85.6 fL (80-94); Mean Platelet Vol. 9.1 fl (6.2-12.0); Monocyte# 0.63 X10^3/uL; NRBC Flagged by Analyzer 0 % (0-5); Platelet Count 313 K/mm3 (150-450); RBC Distribution Width CV 13.9 % (11.6-14.6); RBC Distribution Width SD 43.8 fl (35.1-43.9); Red Blood Count 5.41 M/mm3 (4.6-6.2); White Blood Count 7.8 K/mm3 (4.4-11.0)
[2021-02-03 14:47] LABS: AST(SGOT) 65 U/L (15-37); Alanine Aminotransfer ALT/SGPT 75 U/L (16-61); Albumin, Serum 3.7 g/dL (3.2-5.0); Alkaline Phosphatase 64 U/L (45-117); Anion Gap 5 (5-15); BUN 10 mg/dL (7-18); BUN/Creat Ratio 13.2 RATIO (10-20); Chloride 107 mmol/L (98-107); Creatinine, Serum 0.76 mg/dL (0.70-1.30); EST Glomerular Filtration Rate 120 mL/min (>60); Est Glom Filt Rate - Afr Amer 145 mL/min (>60); Estimated Creatinine Clearance 127.91 ml/min; Globulin 3.8 g/dL (2.2-4.2); Glucose 99 mg/dL (74-106); Lipase 90 U/L (73-393); Protein, Total 7.5 g/dL (6.4-8.2); Sodium Level 138 mmol/L (136-145)
[2021-02-03 15:14] VITALS: BP 132/74; PULSE 80; RESP 16; O2SAT 98
== END 2021-02-03 15:15 | disposition home or self-care (01) ==
PROVIDERS: Emergency Provider Emergency Medicine
DX: A08.4 Viral intestinal infection, unspecified (principal); F17.210 Nicotine dependence, cigarettes, uncomplicated
CPT/HCPCS: 80053; 83690; 85025; 87426; 96361; 96374; 99283; J7030; J2405

== ENCOUNTER 2021-09-21 18:07 | Emergency (ER) | payer OTHER, SELFPAY ==
[2021-09-21 18:08] VITALS: BP 114/78; PULSE 61; RESP 17; TEMP 36.6; O2SAT 99; BMI 22.3
--- NOTE | 2021-09-21 18:37 | EX.ED.GENINJ ---
HPI History of Present Illness Chief Complaint: Laceration Informant: patient Narrative Narrative: Patient was at work and had a metal fall on top of his head. It was 6 inches to a foot above. About 10 pounds. No loss of consciousness. He is a mild headache locally. No numbness tingling weakness. No nausea vomiting. He overall feels well. He has a laceration on the top of his head. Bleeding is controlled. No other injury. Timing pressure stop the bleeding nothing makes it worse. He is not on any anticoagulation. PFSH [facility] Medical History Smoker Home Medications NK 09/21/21 [History Last Taken Unknown] Allergy/AdvReac Type Severity Reaction Status Date / Time No Known Allergies Allergy Verified 09/21/21 18:12 Surgical History H/O hernia repair Social History Smoking Status: Current every day smoker tobacco type: cigarettes ROS ROS ED Eyes Eyes: Denies change in vision ENT ENT ED: Reports other Details: Laceration top of scalp on the right. See history of present illness ; Denies ear pain, rhinorrhea or sore throat Cardiovascular Cardiovascular: Denies racing heartbeat Gastrointestinal Gastrointestinal: Denies nausea or vomiting Musculoskeletal Musculoskeletal: Denies arthralgias, back pain, myalgias or neck pain Integumentary Reports other Details: Laceration per history of present illness. Neurologic Neurologic: Denies paresthesias or weakness Hematologic/Lymphatic Hematologic/Lymphatic: Denies easy bleeding or easy bruising EXAM Physical Exam Const Vital Signs: 09/21/21 18:08 Temperature 97.9 F Temperature Source Temporal Pulse Rate 61 Respiratory Rate 17 Blood Pressure 114/78 Blood Pressure Mean 90 Pulse Ox 99 Oxygen Delivery Method Room Air Positive well nourished and well developed General Appearance ED: well developed and NAD HEENT HEENT Narrative: Patient has a 3 and half centimeter laceration on the top of his scalp right of center. No active bleeding. He goes in an angle so 1 side is thin and 1 is thicker. No step-off. No significant swelling. Eyes PERRL and EOMs intact bilaterally Neck full ROM General: Negative for tenderness Chest Wall inspection of chest normal Resp normal respiratory effort Back/Spine Thoracic Spine / Upper Back: Negative for thoracic spinal tenderness Extremity normal to inspection and full ROM Neuro oriented x3 and gait normal Psych mental status grossly normal Attitude: No agitated Mood & Affect: Negative for depressed, anxious or tearful Skin no rashes or lesions noted Skin Narrative: Laceration to scalp PROC Procedures Lacerations Scalp: Length: 4 cm Depth: Sub Q Shape: Linear Prep: Shure-Cleloly Laceration repair: Irrigated, Lidocaine with epi and Local Irrigated (ml): 100 Number of Sutures/[place]: 9 Suture Information: Simple, 6-0 and - Comment: 9 simple continuous 6-0 Ethilon sutures with good cosmesis and hemostasis. MDM MDM MDM Narrative Medical decision making narrative: No delay in charting due to downtime of entire system. Reasons for follow-up given. Discharge Plan Triage Chief Complaint: Laceration ED Provider: Kurt Marie Dx/Rx/DC Orders Clinical Impression: Laceration of scalp Instructions: ED Laceration Scalp Stitches or [place] Prescriptions: No Action NK Primary Care Provider: Care Physician,No Primary Referrals: Joseline Storey MD [STAFF PHYSICIAN] - 5 Days for suture removal Care Physician,No Primary [Primary Care Provider] - Disposition Disposition: Home, Self Care
[2021-09-21] MEDS: Lidocaine/Epi/Tetracaine 50 ML 1 APPLIC TOPICAL (18:40)
[2021-09-21] MEDS: Diphth,Pertuss(Acell),Tet Vac 0.5 ML Vial IM (18:47)
[2021-09-21 20:35] VITALS: BP 120/75; PULSE 79; RESP 15; O2SAT 98
[2021-09-21] MEDS: Lidocaine 1% /Epi 1:100 (20ml) 20 ML Vial INFILT (20:37)
== END 2021-09-21 20:38 | disposition home or self-care (01) ==
PROVIDERS: Emergency Provider Emergency Medicine; Visit Provider Emergency Medicine
DX: S01.01XA Laceration without foreign body of scalp, initial encounter (principal); F17.210 Nicotine dependence, cigarettes, uncomplicated; Y99.0 Civilian activity done for income or pay; W20.8XXA Other cause of strike by thrown, projected or falling object, initial encounter; Z23 Encounter for immunization
CPT/HCPCS: 12002; 90471; 90715; 99283